=== PATIENT | male | born 1995 | race Hispanic/Latino ===

== ENCOUNTER 2021-10-13 12:34 | Emergency (ER) | payer MEDICAID, OTHER ==
[~2021-10-13] VITALS: Ht 175.3 cm; Wt 81.6 kg
[2021-10-13] MEDS ORDERED: MAGNESIUM 2GM PREMIX 50ML 50 ML IV SCH (13:00)
[2021-10-13 13:09] LABS: BASOPHILS % (AUTO) 0.4 % (0.0-5.0); HEMATOCRIT 47.3 % (42-54); LYMPHOCYTES % (AUTO) 15.2 % (21.0-51.0); MEAN CORPUSCULAR HEMOGLOBIN 29.3 pg (27.0-33.0); MEAN CORPUSCULAR HGB CONC 32.3 g/dL (32.0-36.0); MEAN CORPUSCULAR VOLUME 90.4 fL (79-99); MONOCYTES % (AUTO) 7.8 % (3.0-13.0); NEUTROPHILS % (AUTO) 75.5 % (40.0-77.0); PLATELET COUNT (AUTO) 258 K/uL (130-400); RED BLOOD CELL COUNT(AUTO) 5.23 MIL/uL (4.50-6.20); RED CELL DISTRIBUTION WIDTH 12.4 % (11.0-15.5); WHITE BLOOD COUNT (AUTO) 8.4 K/uL (4.8-10.8)
[2021-10-13 13:18] LABS: CREATININE 1.1 mg/dL (0.5-1.5); POTASSIUM 3.9 mmol/L (3.5-5.1)
[2021-10-13 13:20] LABS: APPEARANCE,URINE Clear (CLEAR); BILIRUBIN,URINE Negative (NEGATIVE); COLOR,URINE Yellow (YELLOW); GLUCOSE, URINE (UA) Negative (NEGATIVE); KETONES,URINE Negative (NEGATIVE); LEUKOCYTE ESTERASE ,URINE Negative (NEGATIVE); NITRATE,URINE Negative (NEGATIVE); OCCULT BLOOD,URINE Negative (NEGATIVE); PROTEIN,URINE Negative (NEGATIVE); UROBILINOGEN,URINE 0.2 mg/dL (0.2-1.0)
[2021-10-13 13:26] LABS: ALBUMIN 4.2 g/dL (3.5-5.0); BILIRUBIN,TOTAL 1.9 mg/dL (0.2-1.0); TOTAL PROTEIN, SERUM 8.1 g/dL (6.0-8.3)
[2021-10-13 13:28] LABS: AMPHET/METH SCREEN,URINE NEGATIVE (NEGATIVE); BARBITURATE SCREEN, URINE NEGATIVE (NEGATIVE); BENZODIAZEPINES SCREEN,URINE NEGATIVE (NEGATIVE); CANNABINOID SCREEN,URINE POSITIVE (NEGATIVE); COCAINE SCREEN,URINE NEGATIVE (NEGATIVE); OPIATE SCREEN,URINE NEGATIVE (NEGATIVE); PHENCYCLIDINE SCREEN,URINE NEGATIVE (NEGATIVE)
[2021-10-13 13:52] LABS: B-TYPE NATRIURETIC PEPTIDE 21 pg/mL (0-100)
[2021-10-13 13:57] LABS: INR 1.07 (0.85-1.15); PROTHROMBIN TIME 11.6 SEC (9.6-11.6)
[2021-10-13 13:59] LABS: PARTIAL THROMBOPLASTIN TIME 27.4 SEC (26.3-35.5)
[2021-10-13 14:56] VITALS: BP 122/61
[2021-10-13] MEDS ORDERED: MAGN400T51 PO (15:08)
== END 2021-10-13 15:40 | disposition home or self-care (01) ==
LOC: EDH 12:34
DX: I49.01 Ventricular fibrillation (principal); I47.2 Ventricular tachycardia; Z95.810 Presence of automatic (implantable) cardiac defibrillator
CPT/HCPCS: 36415; 71045; 80053; 80061; 80305; 81003; 82550; 83735; 83874; 83880; 84484; 85025; 85610; 85730; 93005 ×3; 96365; 99291; J3475

== ENCOUNTER 2022-10-28 07:22 | Day surgery (SDC) | payer OTHER ==
[2022-10-27 13:57] LABS: BASOPHILS % (AUTO) 0.6 % (0.0-5.0); EOSINOPHILS % (AUTO) 3.7 % (0.0-8.0); HEMATOCRIT 44.1 % (42-54); LYMPHOCYTES % (AUTO) 22.6 % (21.0-51.0); MEAN CORPUSCULAR HEMOGLOBIN 29.2 pg (27.0-33.0); MEAN CORPUSCULAR HGB CONC 32.9 g/dL (32.0-36.0); MEAN CORPUSCULAR VOLUME 88.7 fL (79-99); MONOCYTES % (AUTO) 9.2 % (3.0-13.0); NEUTROPHILS % (AUTO) 62.9 % (40.0-77.0); PLATELET COUNT (AUTO) 234 K/uL (130-400); RED BLOOD CELL COUNT(AUTO) 4.97 MIL/uL (4.50-6.20); WHITE BLOOD COUNT (AUTO) 6.8 K/uL (4.8-10.8)
[2022-10-27 14:06] LABS: CREATININE 0.9 mg/dL (0.5-1.5)
[2022-10-27 14:08] LABS: INR 0.96 (0.85-1.15); PROTHROMBIN TIME 10.5 SEC (9.6-11.6)
[2022-10-27 14:09] LABS: PARTIAL THROMBOPLASTIN TIME 28.6 SEC (26.3-35.5)
[2022-10-27 15:22] VITALS: BP 131/76
[~2022-10-28] VITALS: Ht 175.3 cm; Wt 87.5 kg
[2022-10-28] VITALS (9 sets, daily range): BP systolic 103–122; BP diastolic 55–75
[~2022-10-28 07:22] MED LIST: NADO80TA2 PO
[2022-10-28] MEDS ORDERED: 0.9%NACL 1000ML 1,000 ML IV ONE (07:43)
[2022-10-28] MEDS ORDERED: CEFAZOLIN SODIUM 2 GM VIAL IVPB PRN (08:00)
[2022-10-28] MEDS ORDERED: CEFAZOLIN SODIUM 1 GM VIAL ONE (08:13)
[2022-10-28] MEDS ORDERED: BUPIVACAINE/PF 0.25% 30ML VIAL IJ ONE (08:13)
[2022-10-28] MEDS ORDERED: LIDOCAINE HCL 1% MDV 50ML VIAL ONE (08:14)
[2022-10-28] MEDS ORDERED: MIDAZOLAM HCL 1 MG/ML 2ML VIAL ONE ×5 (08:27→09:29)
[2022-10-28] MEDS ORDERED: MEPERIDINE-PF 25 MG/ML SYG ONE ×5 (08:27→09:29)
[2022-10-28] MEDS ORDERED: BACITRACIN 1 EACH PACKET TP ONE (09:20)
[2022-10-28] MEDS ORDERED: ACET-2079 PO (09:50)
[2022-10-28] MEDS ORDERED: ACETAMINOPHEN WITH CODEINE 1 TAB TAB PO PRN (10:00)
[2022-10-28] MEDS ORDERED: ACETAMINOPHEN 500 MG TABLET PO PRN (10:00)
== END 2022-10-28 13:00 | disposition home or self-care (01) ==
LOC: DAH 07:22
PROVIDERS: ATTEND Internal Medicine Cardiovascular Disease
DX: Z45.02 Encounter for adjustment and management of automatic implantable cardiac defibrillator (principal); I45.81 Long QT syndrome; I42.8 Other cardiomyopathies; Z83.3 Family history of diabetes mellitus; Z79.01 Long term (current) use of anticoagulants; Z79.899 Other long term (current) drug therapy
CPT/HCPCS: 80048; 85025; 85610; 85730; 36415; 93005; 33263; C1721; J0690; J7030; J3490 ×2; J2250 ×5; J2175 ×5; A4215; A4222; A4221; A4663; A4216; A4606; A4223 ×3; 99156; 99157

== ENCOUNTER → 2024-02-28 | Outpatient (CLI) | payer OTHER ==
[~2024-02-28] MED LIST changes: +ACET-2079 PO
[2024-02-28 16:42] LABS: CREATININE 1.1 mg/dL (0.5-1.3); MAGNESIUM 1.9 mg/dL (1.80-2.40); POTASSIUM 3.7 mmol/L (3.5-5.1)
== END | disposition home or self-care (01) ==
LOC: LAB 16:00
PROVIDERS: ATTEND Internal Medicine Cardiovascular Disease
DX: I47.20 Ventricular tachycardia, unspecified (principal)
CPT/HCPCS: 36415; 80048; 83735

== ENCOUNTER → 2024-08-28 | Outpatient (CLI) | payer OTHER ==
[2024-08-28 16:18] LABS: CREATININE 0.9 mg/dL (0.5-1.3); MAGNESIUM 1.7 mg/dL (1.80-2.40); POTASSIUM 3.7 mmol/L (3.5-5.1)
== END | disposition home or self-care (01) ==
LOC: LAB 14:01
PROVIDERS: ATTEND Internal Medicine Cardiovascular Disease
DX: R00.0 Tachycardia, unspecified (principal); I45.81 Long QT syndrome
CPT/HCPCS: 36415; 80048; 83735

== ENCOUNTER → 2024-10-04 | Outpatient (CLI) | payer OTHER ==
[~2024-10-04] MED LIST changes: +NADO80TA PO; -NADO80TA2 PO; +acetaMINOPHEN 500 MG TABLET PO PRN; +acetaMINOPHEN WITH coDEINE 1 TAB TAB PO PRN
--- NOTE | 2024-10-05 12:01 | HMCSR ---
APPROVED REPORT EXAM: Two-dimensional and M-mode echocardiogram with Doppler and color Doppler. INDICATION ICD: I47.2 Ventricular tachycardia Abnormal ECG Surgery/Intervention Pacemaker: 2D Dimensions RVDd4.3 cmLVEF(%)62.3 (>50%)LVED Vol(simp.)145.0 mL IVSd0.7 (0.7-1.1cm)FS(%)34 %LVES Vol(simp.)65.0 mL LVDd5.4 (3.8-5.6cm)Ao Root(2D)2.9 (2.0-3.7cm)LVEF(%, simp.)55 % PWd0.8 (0.7-1.1cm)LVOT diam2.2 (1.8-2.4cm)LA ESV INDEX (BP)17.03 mL/m2 LVDs3.6 (2.5-4.0cm)IVC diam1.6 cm Aortic Valve AoV Vmax1.1 m/Lise Peak GR4.9 mmHgLVOT Vmax1.0 m/s AoV VTI0.2 mAo Mean GR2.8 mmHgLVOT VTI0.21 m LUIS ALBERTO (VMAX)3.3 cm2AVA (VTI) 3.3 cm2 Mitral Valve MV E Vmax84.3 cm/sDECEL Yoeg816 ms MV A Vmax47.1 cm/sP 1/2 T60 ms E/A ratio1.8MVA (PHT)3.7 cm2 TDI E/E' Medial6.0E/E' Lateral5.0 Pulmonary Valve PV Vmax1.0 m/sPV VTI0.26 mPV Mean GR2 mmHg PV Peak GR4.2 mmHg Tricuspid Valve TR Vmax2.1 m/sRAP (EST) 3 tgHjHMFR43.5 mmHg TR Peak GR17.5 mmHg Left Ventricle The left ventricle structure and function is normal. There is normal left ventricular wall thickness. Left ventricle systolic function is The Ejection Fraction is 60% Left ventricular filling pattern is normal for age. Right Ventricle The right ventricle is mildly dilated. The right ventricular systolic function is normal. Atria The left atrium size is normal. The right atrium is borderline dilated. Aortic Valve Aortic valve is trileaflet. The aortic valve opens well. No aortic regurgitation is present. There is no aortic valvular stenosis. Mitral Valve Mitral valve leaflets are mildly sclerotic but open well. Mitral regurgitation is trace. There is no mitral valve stenosis. Tricuspid Valve The tricuspid valve leaflets appear normal. There is trace tricuspid regurgitation. Pulmonic Valve The pulmonic valve leaflets are thin and pliable; valve motion is normal. There is trace pulmonic catarina vular regurgitation. Great Vessels The aortic root is normal in size. The IVC is normal in size and collapses >50% with inspiration. Pericardium No pericardial effusion. Conclusion Left ventricle systolic function is The Ejection Fraction is 60% Left ventricular filling pattern is normal for age. The right ventricle is mildly dilated. The right ventricular systolic function is normal. The right atrium is borderline dilated. Mitral regurgitation is trace. There is trace tricuspid regurgitation.
== END | disposition home or self-care (01) ==
LOC: SHCH 07:53
PROVIDERS: ATTEND Internal Medicine Cardiovascular Disease
DX: I34.0 Nonrheumatic mitral (valve) insufficiency (principal); R94.31 Abnormal electrocardiogram [ECG] [EKG]; I47.20 Ventricular tachycardia, unspecified; Z95.0 Presence of cardiac pacemaker
CPT/HCPCS: 93306